=== PATIENT | male | born 1980 | race Two or more races ===

== ENCOUNTER 2021-02-08 10:55 | Emergency (ER) | payer SELFPAY ==
[~2021-02-08] VITALS: Ht 170.2 cm; Wt 95.3 kg
[2021-02-08 12:42] VITALS: BP 129/85
== END 2021-02-08 13:05 | disposition home or self-care (01) ==
LOC: ER 10:55
DX: M19.011 Primary osteoarthritis, right shoulder (principal); X58.XXXA Exposure to other specified factors, initial encounter; Y93.66 Activity, soccer; Y92.89 Other specified places as the place of occurrence of the external cause; Y99.8 Other external cause status
CPT/HCPCS: 73030